=== PATIENT | male | born 1975 | race Caucasian/White ===

== ENCOUNTER 2024-11-08 23:05 | Observation (INO) | payer BC, OTHER ==
[2024-11-08 23:45] LABS: BASOPHILS ABSOLUTE AUTO 0.03 K/uL (0.00-0.10); BASOPHILS PERCENT AUTO 0.2 % (0.1-1.3); EOSINOPHILS ABSOLUTE AUTO 0.08 K/uL (0.00-0.40); EOSINOPHILS PERCENT AUTO 0.6 % (0.0-5.4); HEMATOCRIT 45.2 % (38.4-49.7); HEMOGLOBIN 15.7 g/dL (12.9-16.9); IMMATURE GRAN ABSOLUTE AUTO 0.03 K/uL (0.00-0.23); IMMATURE GRAN PERCENT AUTO 0.2 % (0.0-0.7); LYMPHOCYTES ABSOLUTE AUTO 1.86 K/uL (0.8-3.3); LYMPHOCYTES PERCENT AUTO 14.6 % (11.4-47.7); MEAN CORPUSCULAR HEMOGLOBIN 29.2 pg (31.6-35.5); MEAN CORPUSCULAR HGB CONC 34.7 g/dL (31.6-35.5); MEAN CORPUSCULAR VOLUME 84.2 fL (81.4-99.0); MONOCYTES PERCENT AUTO 6.3 % (3.3-12.6); NEUTROPHILS ABSOLUTE AUTO 9.91 K/uL (1.0-7.6); NEUTROPHILS PERCENT AUTO 78.1 % (40.0-78.1); PLATELET COUNT,PLT 163 K/uL (130-375); RED BLOOD CELL COUNT 5.37 M/uL (4.14-5.76); WHITE BLOOD CELL COUNT,WBC 12.7 K/uL (3.2-11.0)
[2024-11-09 00:01] LABS: ANION GAP 12.3 mmol/L (5.0-14.0); CALCIUM 8.9 mg/dL (8.5-10.1); CREATININE 1.2 mg/dL (0.8-1.3); EST CRCL DRUG DOSING (CG) 79.94 mL/min; POTASSIUM,K 3.9 mmol/L (3.6-5.2)
[2024-11-09] MEDS: Sodium Chloride 0.9% 1,000 ML IV SCH ×2 (00:58→03:29)
[2024-11-09] MEDS: Ampicillin/Sulbactam Na 3 GM in Sodium Chloride 0.9% 100 ML IV ONE (00:58)
[2024-11-09] MEDS ORDERED: Morphine 2 MG/ML SYRINGE IVPUSH PRN (01:23)
[2024-11-09] MEDS ORDERED: Ondansetron 4 MG/2 ML SDV IV PRN (01:23)
[2024-11-09] MEDS ORDERED: Ampicillin/Sulbactam Na 3 GM in Sodium Chloride 0.9% 100 ML IV SCH ×2 (07:10→08:00)
[2024-11-09] MEDS ORDERED: Acetaminophen 325 MG Tab PO PRN (07:38)
[2024-11-09] MEDS ORDERED: Acetaminophen/oxyCODONE 325-5 MG Tab PO PRN (07:38)
[2024-11-09] MEDS ORDERED: Ketorolac 30 MG/ML SDV IVPUSH PRN (07:43)
[2024-11-09] MEDS ORDERED: Neostigmine Methylsulfate 10 MG/10 ML MDV ONE (07:46)
[2024-11-09] MEDS ORDERED: Propofol 200 MG/20 ML SDV ONE (07:46)
[2024-11-09] MEDS ORDERED: Ondansetron 4 MG/2 ML SDV ONE (07:46)
[2024-11-09] MEDS ORDERED: Rocuronium 50 MG/5 ML Vial ONE (07:46)
[2024-11-09] MEDS ORDERED: Dexamethasone 4 MG/ML SDV ONE (07:46)
[2024-11-09] MEDS ORDERED: Succinylcholine 200 MG/10 ML MDV ONE (07:46)
[2024-11-09] MEDS ORDERED: Glycopyrrolate 0.2 MG/ML 5 ML MDV ONE (07:46)
[2024-11-09] MEDS ORDERED: fentaNYL 250 MCG/5 ML SDV ONE ×2 (07:47→08:26)
[2024-11-09] MEDS: Piperacillin/Tazobactam/Dext 4.5 GM in Premix Bag 1 BAG IV ONE (08:08)
[2024-11-09] MEDS: Heparin Sodium 5,000 Units/ML Vial SUBCUT ONE (08:09)
[2024-11-09] MEDS ORDERED: Lactated Ringers 1,000 ML ONE (08:35)
[2024-11-09] MEDS: Bupivacaine 0.5%/EPINEPHrine 1:200,000 30 ML SDV INJECT ONE (08:55)
[2024-11-09] MEDS ORDERED: Meperidine PF 100 MG/ML Syringe IV ONE (09:30)
[2024-11-09] MEDS: Meperidine PF 100 MG/ML Syringe ONE (11:47)
== END 2024-11-09 15:12 | disposition home or self-care (01) ==
LOC: JP.ED 23:05 → INTOOBSV 11-09 01:12 → JP.MS 11-09 01:12 → UNDOADMIN 11-09 01:19 → JP.MS 11-09 01:19
PROVIDERS: ADMIT Internal Medicine; ATTEND Surgery
DX: K35.30 Acute appendicitis with localized peritonitis, without perforation or gangrene (principal)
CPT/HCPCS: 36415; 44970; 74176; 80048; 85025; 88304; 88307; 88341; 88342; 96365; 96367; 96372; 99285; G0378; J0295; J0330; J1100; J1596; J1644; J2175; J2405; J2543; J2704; J2710; J3010; J3490; J7030; J7120; 00840-QZ; 99223